=== PATIENT | female | born 1960 | race Caucasian/White ===

== ENCOUNTER 2017-12-20 00:40 | Emergency (ER) | END 2017-12-20 05:56 | disposition home or self-care (01) ==

== ENCOUNTER 2018-01-31 06:55 | Day surgery (SDC) | END 2018-01-31 17:20 | disposition home or self-care (01) ==

== ENCOUNTER 2018-09-01 09:42 | Day surgery (SDC) | END 2018-09-01 14:30 | disposition home or self-care (01) ==

== ENCOUNTER 2019-07-26 13:34 | Emergency (ER) | payer OTHER ==
[~2019-07-26] VITALS: Ht 152.4 cm; Wt 62.0 kg
[~2019-07-26 13:34] MED LIST: ALBU18HF INHALATION; AZIT250T PO; BEN25 PO; CLIN300C10 PO; D-ME473S2 PO; DOXY100T34 PO; FLUT1BLS3 IH; IBUP-1561 PO; LETR2.5T PO; PRED20TA PO
[2019-07-26 13:35] VITALS: Ht 152.4 cm; Wt 62.0 kg
[2019-07-26] MEDS ORDERED: METHYLPREDNISOLONE 125 MG INJ IM ONE (16:00)
[2019-07-26] MEDS ORDERED: PROMETHAZINE/DM (CUP) PO ONE (16:00)
[2019-07-26 17:00] VITALS: BP 131/66; PULSE 81; RESP 18
== END 2019-07-26 17:03 | disposition home or self-care (01) ==
LOC: FTE 13:34
DX: J98.11 Atelectasis (principal); Z85.3 Personal history of malignant neoplasm of breast
CPT/HCPCS: 71046; 87400; 96372; J2930; Z7502; Z7610; 71045

== ENCOUNTER 2019-08-03 13:51 | Emergency (ER) | payer OTHER ==
[~2019-08-03] VITALS: Ht 152.4 cm; Wt 61.0 kg
[2019-08-03 14:06] VITALS: BP 117/67; PULSE 90; RESP 18; Ht 152.4 cm; Wt 61.0 kg
== END 2019-08-03 14:06 | disposition home or self-care (01) ==
LOC: FTE 13:51 → E/R 14:06
DX: R05 Cough (principal); Z85.3 Personal history of malignant neoplasm of breast
CPT/HCPCS: 71045